=== PATIENT | female | born 1950 | race Caucasian/White ===

== ENCOUNTER 2018-10-05 07:55 | Day surgery (SDC) | payer MEDICARE ==
[~2018-10-05 07:55] MED LIST: Metoclopramide 10 MG/2 ML SDV IV PRN
[2018-10-05] MEDS: Sodium Chloride 0.9% 1,000 ML IV SCH (09:15)
[2018-10-05] MEDS ORDERED: Propofol 1,000 MG/100 ML SDV ONE (12:00)
--- NOTE | 2018-10-05 14:43 | OR ---
DATE OF OPERATION: 10/05/2018 PREOPERATIVE DIAGNOSIS: Screening colonoscopy. POSTOPERATIVE DIAGNOSIS: Screening colonoscopy. PROCEDURE: Colonoscopy with biopsy. ANESTHESIA: MAC. ESTIMATED BLOOD LOSS: Minimal. COMPLICATIONS: None. INDICATION FOR THE PROCEDURE: The patient is a 68-year-old female, here today for screening colonoscopy. Last colonoscopy was 10 years ago and was normal. She denies any change in bowel habits since that time. DESCRIPTION OF THE PROCEDURE: The patient was taken to the operating room and placed on table in left lateral decubitus position. Monitored anesthesia care was administered. Digital rectal exam was performed and was normal. Colonoscope was then advanced through the anus and directed toward the cecum. Cecum was reached and identified by appendiceal orifice and ileocecal valve. She did have a medium-sized sessile mass with evidence of previous bleeding in the proximal ascending colon just distal to the ileocecal valve. This did appear malignant. Multiple biopsies with cold forceps were taken. Colonoscope was then slowly withdrawn. Further, no additional masses and no additional polyps were identified throughout the remainder of the colon. Rectum was also otherwise unremarkable. FINDINGS: Proximal ascending colon mass, likely malignant. RECOMMENDATIONS: We will follow up on official pathology. Further treatment dependent upon Pathology. NATALIYA/GRACIA /[id number]
== END 2018-10-05 13:35 | disposition home or self-care (01) ==
LOC: LB.SDS 07:55
PROVIDERS: ATTEND Surgery
DX: Z12.11 Encounter for screening for malignant neoplasm of colon (principal); C18.2 Malignant neoplasm of ascending colon
CPT/HCPCS: 45380; 88305; G0121; J2704; J7030

== ENCOUNTER 2019-02-01 11:14 | Outpatient (CLI) | payer MEDICARE | END 2019-02-01 11:30 | disposition home or self-care (01) | LOC: LB.ACU 11:14 | PROVIDERS: ATTEND Physician Assistant Medical | DX: C18.9 Malignant neoplasm of colon, unspecified (principal) | CPT/HCPCS: 96523; J1642 ==

== ENCOUNTER → 2019-02-11 | Outpatient (CLI) | payer MEDICARE | LOC: LB.LAB 08:32 | PROVIDERS: ATTEND Physician Assistant Medical | DX: C18.2 Malignant neoplasm of ascending colon (principal) | CPT/HCPCS: 36415; 80053; 85025 ==

== ENCOUNTER 2019-03-21 07:38 | Outpatient (CLI) | payer MEDICARE ==
[~2019-03-21 07:38] MED LIST changes: -Metoclopramide 10 MG/2 ML SDV IV PRN; +Sodium Chloride 0.9% 10 ML Syringe FLUSH ONE
== END 2019-03-21 08:20 | disposition home or self-care (01) ==
LOC: LB.ACU 07:38
PROVIDERS: ATTEND Physician Assistant Medical
DX: Z45.2 Encounter for adjustment and management of vascular access device (principal); C18.9 Malignant neoplasm of colon, unspecified
CPT/HCPCS: 96523; J1642

== ENCOUNTER 2019-12-06 09:22 | Day surgery (SDC) | payer MEDICARE ==
[~2019-12-06 09:22] MED LIST changes: +Metoclopramide 10 MG/2 ML SDV IV PRN; +Sodium Chloride 0.9% 1,000 ML IV SCH; -Sodium Chloride 0.9% 10 ML Syringe FLUSH ONE
[2019-12-06] MEDS ORDERED: Propofol 1,000 MG/100 ML SDV ONE (12:00)
--- NOTE | 2019-12-06 18:14 | OR ---
DATE OF OPERATION: 12/06/2019 SURGEON: Virgil Kaplan MD PREOPERATIVE DIAGNOSIS: Personal history of colon cancer. POSTOPERATIVE DIAGNOSIS: Personal history of colon cancer. PROCEDURE: Colonoscopy. ANESTHESIA: MAC. ESTIMATED BLOOD LOSS: None. COMPLICATIONS: None. 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 She was taken to the OR for laparoscopic hand-assisted right hemicolectomy. She is here today for her 1 year followup. DESCRIPTION OF PROCEDURE: Informed consent was obtained from the patient. The patient was taken to the operating room and placed on table in left lateral decubitus position. Monitored anesthesia care was administered. Digital rectal exam performed and it was normal. Colonoscope then advanced through the anus directed toward her ileocolonic anastomosis. The anastomosis was reached in the right upper quadrant. It was widely patent and appeared healthy. Colonoscope was slowly withdrawn. No polyps, no masses. No areas of ischemia or inflammation identified. Colonoscope then withdrawn. FINDINGS: Normal colonoscopy with ileocolonic anastomosis, patent. RECOMMENDATIONS: We would recommend repeat surveillance colonoscopy in 3 years. FUENTES /[id number]
== END 2019-12-06 13:35 | disposition home or self-care (01) ==
LOC: LB.SDS 09:22
PROVIDERS: ATTEND Surgery
DX: Z08 Encounter for follow-up examination after completed treatment for malignant neoplasm (principal); Z85.038 Personal history of other malignant neoplasm of large intestine; Z98.890 Other specified postprocedural states; Z90.49 Acquired absence of other specified parts of digestive tract; Z98.0 Intestinal bypass and anastomosis status; Z79.82 Long term (current) use of aspirin
CPT/HCPCS: G0105; J2704; J7030

== ENCOUNTER 2021-01-07 11:33 | Day surgery (SDC) | payer MEDICARE ==
[2021-01-07] MEDS ORDERED: Propofol 1,000 MG/100 ML SDV ONE (14:30)
--- NOTE | 2021-01-07 15:11 | OR ---
DATE OF OPERATION: 01/07/2021 SURGEON: Virgil Kaplan MD PREOPERATIVE DIAGNOSES: Abnormal CT scan and history of colon cancer. POSTOPERATIVE DIAGNOSES: Abnormal CT scan and history of colon cancer. PROCEDURE: Colonoscopy. ANESTHESIA: MAC. ESTIMATED BLOOD LOSS: None. COMPLICATIONS: None. INDICATION FOR PROCEDURE: The patient is a 70-year-old female who has had previous right hemicolectomy for colon cancer. This was done 2 years ago. She did have a followup colonoscopy last year which was normal. 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 She was brought back to the OR today for colonoscopy. DESCRIPTION OF PROCEDURE: Informed consent was obtained with the patient. The patient was taken to the operating room, placed on the table in the left lateral decubitus position. Monitored anesthesia care was administered. Digital rectal exam was performed, it was normal. Colonoscope was then advanced through the anus, directed toward the ileocolonic anastomosis in the right upper quadrant. This was reached, the colonoscope was then slowly withdrawn. No area of annular constriction noticed in the transverse colon. The remainder of the colon also otherwise unremarkable. Colonoscope was then withdrawn. FINDINGS: Healthy patent ileocolonic anastomosis and no signs of recurrent cancer. RECOMMENDATIONS: Would recommend repeat surveillance colonoscopy in 3 years. NATALIYA/GRACIA /[id number]
== END 2021-01-07 15:26 | disposition home or self-care (01) ==
LOC: LB.SDS 11:33
PROVIDERS: ATTEND Surgery
DX: R93.3 Abnormal findings on diagnostic imaging of other parts of digestive tract (principal); Z85.038 Personal history of other malignant neoplasm of large intestine; Z90.49 Acquired absence of other specified parts of digestive tract; Z98.0 Intestinal bypass and anastomosis status; Z88.8 Allergy status to other drugs, medicaments and biological substances
CPT/HCPCS: 45378; J2704; J7030